=== PATIENT | female | born 1935 | race Caucasian/White ===

== ENCOUNTER → 2016-11-05 | Outpatient (REF) | payer MEDICARE ==
[~2016-11-05] MED LIST: /PANT40TA; /TIOT18INH INH; ACET65TA OR; ALBU17IN INH; ALBU83IN INH; ALTA10CA PO; ASPI1TAB PO; ASPI81TA83 PO; ASPI81TAEC PO; ATRO0.06; AVEL1TAB PO; AZIT500T2 PO; BENA10TA2 OR; BIOTLIQ9 MT; BROV15NE INH; BUDE0.5S6 INH; CARV12.5 PO; CARV3.12 PO; CEFD1CAP8 PO; CEFT250T PO; CEFT500T; CEFU125S PO; COMBIN INH; CORE3.12 PO; CRES40TA; CRES40TA PO; DOXY150C PO; IPRA2IN INH; IPRASOL4 INH; KLOR1TAB69 PO; LASI20TA PO; LEVA250T OR; LEVA250T PO; LEVO112T2 PO; LEVO250T24 PO; LISI-542 PO; MUCI600T34 PO; MULTLIQ PO; NEUR100C PO; OXYGEN; PLAV75TA PO; PLAV75TA2 PO; POLYPOW78 PO; POTA-77 PO; POTA10CA2 OR; POTA10PO PO; POTA1TAB14 PO; PRED10PA PO; PRED10TA PO; PRED10TA2; PRED1TAB32 PO; PRED1TABL PO; PRED20TAB PO; PRED5SOL2 PO; PRED5TA PO; RANI150C OR; SPIR1CAP INH; SPIR25TA2 PO; SYMB80INH INH; SYNT125T PO; TIOT18INH INH; TYLE325T5 PO; ULTR50TA PO; VALT500T PO; VIT D 2000 PO; VITA100037 PO; VITA100066 PO; WELL100T PO; XOPEAER IN; ZANTTAB PO; ZEST1TAB5 PO; ZITH500T
== END ==
LOC: M LAB REF 12:56
PROVIDERS: ATTEND Internal Medicine Nephrology
DX: N39.0 Urinary tract infection, site not specified (principal)

== ENCOUNTER 2017-01-30 00:57 | Inpatient (IN) | payer MEDICARE ==
[2017-01-30] VITALS (9 sets, daily range): BP systolic 111–137; BP diastolic 56–69; O2SAT 96
[~2017-01-30] VITALS: Ht 160 cm; Wt 68.8 kg
[~2017-01-30 00:57] MED LIST changes: -PLAV75TA PO; +PLAV75TA38 PO
[2017-01-30 01:20] LABS: ABG BASE EXCESS -6.8 (-2.0-2.0); ABG HCO3 17.4 MEQ/L (22.0-26.0); ABG PARTIAL PRESSURE CO2 31.3 mmHg (35.0-45.0); ABG PARTIAL PRESSURE O2 66.1 mmHg (75.0-100.0); ABG STANDARD HCO3 18.9 MEQ/L (22.0-26.0); ABG TOTAL CO2 18.4 MEQ/L (23.0-31.0); ABG pH (ARTERIAL) 7.364 UNITS (7.350-7.450)
[2017-01-30 01:32] LABS: BASO % 0.4 % (0.0-1.0); EOS # 0.4 K/mm3 (0.0-0.50); EOS % 2.7 % (0.0-3.0); LARGE UNSTAINED CELL # 0.1 K/mm3 (0.0-0.4); LARGE UNSTAINED CELL % 0.8 % (0.0-4.0); LYMPH # 2.3 K/mm3 (1.5-4.5); LYMPH % 16.6 % (24.0-44.0); MEAN CORPUSCULAR HEMOGLOBIN 31.9 pg (27.0-33.0); MEAN CORPUSCULAR HGB CONC 31.8 g/dl (32.0-36.5); MEAN CORPUSCULAR VOLUME 100.1 fl (80.0-96.0); MONO # 0.6 K/mm3 (0.0-0.8); MONO % 4.2 % (0.0-5.0); NEUTROPHILS % 75.4 % (36.0-66.0); PLATELET COUNT, AUTOMATED 179 k/mm3 (150-450); WHITE BLOOD COUNT 13.3 K/mm3 (4.0-10.0)
[2017-01-30 01:49] LABS: BLOOD UREA NITROGEN 37 MG/DL (7-18); CALCIUM LEVEL 8.6 MG/DL (8.8-10.2); CARBON DIOXIDE LEVEL 22 MEQ/L (21-32); CHLORIDE LEVEL 113 MEQ/L (98-107); CREATININE FOR GFR 2.44 MG/DL (0.55-1.02); GLUCOSE, FASTING 138 MG/DL (83-110)
[2017-01-30 02:53] LABS: ANION GAP 10 MEQ/L (8-16); SODIUM LEVEL 145 MEQ/L (136-145)
[2017-01-30] MEDS ORDERED: PIPERACILLIN/TAZOBACTAM SOD 3.375 GM in D5W MINI-BAG PLUS 50 ML IV ONE (03:30)
[2017-01-30] MEDS ORDERED: NS 500 ML IV ONE (03:30)
[2017-01-30] MEDS ORDERED: methylPREDNISolone INJ 125 MG/2 ML VIAL (J2930) IV ONE (03:30)
[2017-01-30] MEDS ORDERED: ACETAMINOPHEN 500 MG TAB PO PRN (04:15)
[2017-01-30] MEDS ORDERED: ONDANSETRON 4MG/2ML VIAL (J2405) IV PRN (04:15)
[2017-01-30] MEDS ORDERED: BISACODYL 10 MG SUPP PR PRN (04:15)
[2017-01-30] MEDS ORDERED: IPRA6SP (04:26)
[2017-01-30] MEDS ORDERED: PRED10TA PO (04:26)
[2017-01-30] MEDS ORDERED: POTA10CA PO (04:26)
[2017-01-30 06:14] LABS: ABG BASE EXCESS -6.6 (-2.0-2.0); ABG HCO3 18.1 MEQ/L (22.0-26.0); ABG PARTIAL PRESSURE CO2 33.7 mmHg (35.0-45.0); ABG STANDARD HCO3 18.8 MEQ/L (22.0-26.0); ABG TOTAL CO2 19.1 MEQ/L (23.0-31.0); ABG pH (ARTERIAL) 7.348 UNITS (7.350-7.450)
[2017-01-30 06:17] LABS: ABG PARTIAL PRESSURE O2 45.6 mmHg (75.0-100.0)
[2017-01-30] MEDS: BUDESONIDE 0.5 MG/2 ML INHALATION SUSPENSION INH SCH ×2 (06:27→20:01)
[2017-01-30] MEDS: IPRATROPIUM 0.5MG/ALBUTEROL 2.5MG INH SOL UD 3ML (DUONEB)(J7620) NEB SCH ×4 (06:27→20:00)
[2017-01-30] MEDS ORDERED: ALBUTEROL SULFATE 2.5 MG/0.5 ML INH NEB SOLN NEB PRN (06:30)
[2017-01-30 06:37] LABS: BASO % 0.3 % (0.0-1.0); EOS # 0.2 K/mm3 (0.0-0.50); LARGE UNSTAINED CELL # 0.1 K/mm3 (0.0-0.4); LARGE UNSTAINED CELL % 0.4 % (0.0-4.0); LYMPH # 1.2 K/mm3 (1.5-4.5); LYMPH % 10.2 % (24.0-44.0); MEAN CORPUSCULAR HEMOGLOBIN 32.4 pg (27.0-33.0); MEAN CORPUSCULAR HGB CONC 32.3 g/dl (32.0-36.5); MEAN CORPUSCULAR VOLUME 100.4 fl (80.0-96.0); MONO # 0.4 K/mm3 (0.0-0.8); MONO % 3.1 % (0.0-5.0); NEUTROPHILS # 9.7 K/mm3 (1.8-7.7); NEUTROPHILS % 84.1 % (36.0-66.0); PLATELET COUNT, AUTOMATED 153 k/mm3 (150-450); RED CELL DISTRIBUTION WIDTH 15.1 % (11.5-14.5); WHITE BLOOD COUNT 11.5 K/mm3 (4.0-10.0)
[2017-01-30 06:43] LABS: ALBUMIN 3.2 GM/DL (3.2-5.2); ALKALINE PHOSPHATASE 47 U/L (45-117); ALT/SGPT 85 U/L (12-78); AST/SGOT 175 U/L (15-37); BILIRUBIN,TOTAL 0.5 MG/DL (0.2-1.0); BLOOD UREA NITROGEN 34 MG/DL (7-18); CALCIUM LEVEL 7.9 MG/DL (8.8-10.2); CARBON DIOXIDE LEVEL 21 MEQ/L (21-32); CHLORIDE LEVEL 116 MEQ/L (98-107); CREATININE FOR GFR 2.31 MG/DL (0.55-1.02); GLUCOSE, FASTING 118 MG/DL (83-110); POTASSIUM SERUM 3.8 MEQ/L (3.5-5.1); SODIUM LEVEL 144 MEQ/L (136-145); TOTAL PROTEIN 6.3 GM/DL (6.4-8.2)
[2017-01-30] MEDS: LEVOTHYROXINE 0.112 MG TAB (112 MCG) PO SCH (07:39)
[2017-01-30] MEDS: FORMOTEROL FUMARATE 20 MCG/2 ML INHALATION SOLUTION (PERFOROMIST) INH SCH ×2 (08:00→20:01)
--- NOTE | 2017-01-30 08:59 | REP ---
AP PORTABLE CHEST: 01/30/2017. Clinical history: Dyspnea, cough. Comparison: 03/12/2016, 01/23/2016 chest x-ray. Findings: Hyperinflation with changes of COPD and fibrosis. Fibrosis is heavier in the bases. There is no pleural effusion or dense consolidation. Heart size mildly prominent for this projection and degree of inflation. There is some venous hypertension without pulmonary edema. The aorta is calcified, tortuous and ectatic without aneurysm. It is unchanged in appearance. Airway intact. There is no widening of the mediastinum. No gurwinder edema. Degenerative changes are seen in the spine. The bones are demineralized. Impression: 1. COPD and fibrosis with heavier fibrotic changes in the bases. No acute infiltrate. 2. Mild prominence cardiac silhouette with venous hypertension. No gurwinder edema. No definite effusion. 3. Tortuous calcified ectatic aorta unchanged. Signed by London Figueroa MD 01/30/2017 09:11 A
[2017-01-30] MEDS: SENOKOT S TAB PO SCH ×2 (09:00→21:24)
[2017-01-30] MEDS: HEPARIN SOD (PORCINE) 5000 UNITS/ML VIAL SC SCH ×2 (09:10→21:24)
[2017-01-30] MEDS: CARVedilol 3.125 MG TAB PO SCH ×2 (09:10→21:23)
[2017-01-30] MEDS: ASPIRIN 81 MG ENTERIC TAB PO SCH (09:11)
[2017-01-30] MEDS: methylPREDNISolone INJ 40 MG/1 ML VIAL (J2920) IV SCH ×3 (09:11→21:24)
[2017-01-30] MEDS: PANTOPRAZOLE 40MG TAB (PROTONIX) PO SCH (09:11)
[2017-01-30] MEDS: PIPERACILLIN/TAZOBACTAM SOD 2.25 GM in D5W MINI-BAG PLUS 50 ML IV SCH ×3 (09:11→21:25)
--- NOTE | 2017-01-30 09:14 | IPNPDOC ---
Subjective Date Seen The patient was seen on 01/30/17. Subjective Chief Complaint/HPI The patient is a 82-year-old female admitted with a reason for visit of Acute On Chronic Resp Failure. General: Denies: Chills, Fatigue, Malaise, Night Sweats, Normal Appetite, Other Symptoms, ROS Unobtainable Constitutional: Denies: Chills, Fatigue, Fever, Lethargy, Malaise, Night Sweats , Other, Weakness, Weight Loss Eyes: Denies: Conjunctivae inflammation, Eyelid inflammation, Other, Pain, Redness, Vision change ENT: Denies: Dysphagia, Ear Pain, Epistaxis, Head Aches, Other Symptoms, Post Nasal Drip, Sinus Congestion, Sore Throat Skin: Denies: Breakdown, Bruising, Dry, Itching, Jaundice, Lesions, Nail Changes, Other, Rash Pulmonary: Denies: Cough, Dyspnea, Other Symptoms, Pleuritic Chest Pain Cardiovascular: Denies: Chest Pain, Edema, Lt Headedness, Orthopnea, Other Symptoms, Palpitations, Paroxysmal Noc. Dyspnea Gastrointestinal: Denies: Abdominal Pain, Constipation, Diarrhea, Hematochezia , Melena, Nausea, Other Symptoms, Vomiting Objective Physical Examination General Exam: Positive: Alert, Cooperative, No Acute Distress, Other (elderly, frail) Eye Exam: Positive: Conjunctiva & lids normal, EOMI, PERRLA, Negative: Sclera icteric ENT Exam: Positive: Atraumatic, Mucous membr. moist/pink Neck Exam: Positive: JVD, Supple Chest Exam: Positive: Other (diminished breath sounds R>L), Wheezing Heart Exam: Positive: Rate Normal, Regular Rhythm Telemetry: Positive: No significant arrhythmia, Sinus Extremity Exam: Negative: Edema Psych Exam: Positive: Mental status NL, Oriented x 3 Assessment /Plan Problems (1) Acute on chronic respiratory failure with hypoxia Status: Acute Response to Treatment: Progressing Discussed With: Patient, Health Care Proxy Problem Specific Plan: Monitor Clinically Problem Text: Supplemental oxygen to maintain O2 sats 88-92%. ABG noted, question if possible mixed arterial/venous as patient is extremely comfortable. Treat as per COPD. IV antibiotics - Zosyn - for possible underlying respiratory infection. Will check respiratory panel. History of recent pneumonia (December 2016), as well as distant history of bilateral pleural effusion / right chest tube in 2006. CT chest when respiratory status improves. MRSA screen. (2) COPD exacerbation Onset Date: 10/28/2014 Status: Acute Discussed With: Patient Problem Specific Plan: Monitor Clinically Problem Text: Acute on chronic. Antibiotics, steroids. (3) CAD (coronary artery disease) Status: Chronic Discussed With: Patient, Health Care Proxy Problem Specific Plan: Monitor Clinically, Repeat Labs Problem Text: S/P [place]/stents 2005 continue plavix, crestor, aspirin, coreg (4) CKD (chronic kidney disease) Status: Acute Discussed With: Patient Problem Specific Plan: Monitor Clinically, Repeat Labs, Repeat Tests Problem Text: acute on chronic check ua, ucs gentle hydration (5) Hypothyroidism Status: Chronic Problem Text: synthroid check thyroid profile (6) Hypercholesterolemia Status: Chronic Problem Text: Crestor (7) CVA (cerebral vascular accident) Status: Chronic Discussed With: Patient, Health Care Proxy Problem Specific Plan: Monitor Clinically Problem Text: 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 Plan/VTE VTE Prophylaxis Ordered?: Yes Plan IVF: Initiate Diet: Continue Current Activity: Bedrest Medications: Start Antibiotics Diagnostics: Repeat Labs in AM, Obtain Cultures Advance Directives: DNR No H&P available yet. A/C hypoxic respiratory failure. Treating as COPD exacerbation +/- PNA. Respiratory regimen, IV steroid, IV antibiotics. VS, I&O, 24H, [facility] Vital Signs/I&O Vital Signs Date Time Temp Pulse Resp B/P Pulse Ox O2 Delivery O2 Flow Rate FiO2 01/30/17 06:48 88 Venturi Mask 15.0 50 01/30/17 06:00 97.5 62 20 133/61 Laboratory Data 24H LABS Laboratory Tests 2 01/30/17 01:08: Arterial Blood pH 7.364, Arterial Blood Partial Pressure CO2 31.3L, Arterial Blood Partial Pressure O2 66.1L, Arterial Blood Total CO2 18.4L, Arterial Blood HCO3 17.4L, Arterial Blood Base Excess -6.8L, Arterial Blood Oxygen Saturation 93.2L, Blood Gas Bicarbonate Standard 18.9L 01/30/17 01:10: Anion Gap 10, White Blood Count 13.3H, Red Blood Count 3.76L, Hemoglobin 12.0, Hematocrit 37.6, Mean Corpuscular Volume 100.1H, Mean Corpuscular Hemoglobin 31.9, Mean Corpuscular Hemoglobin Concent 31.8L, Red Cell Distribution Width 15.0H, Platelet Count 179, Neutrophils (%) (Auto) 75.4H, Lymphocytes (%) (Auto) 16.6L, Monocytes (%) (Auto) 4.2, Eosinophils (%) (Auto) 2.7, Basophils (%) (Auto ) 0.4, Neutrophils # (Auto) 10.0H, Lymphocytes # (Auto) 2.3, Monocytes # (Auto) 0.6, Eosinophils # (Auto) 0.4, Basophils # (Auto) 0.0, Blood Urea Nitrogen 37H, Creatinine 2.44H, Sodium Level 145, Potassium Level 4.0, Chloride Level 113H, Carbon Dioxide Level 22, Calcium Level 8.6L, Total Creatine Kinase 4721H, Creatine Kinase MB 17.1H, Creatine Kinase MB Relative Index 0.36, Lactic Acid Level 1.7, Large Unclassified Cells # 0.1, Large Unclassified Cells % 0.8, Troponin I 0.02 01/30/17 06:01: White Blood Count 11.5H, Red Blood Count 3.57L, Hemoglobin 11.6L, Hematocrit 35.9L, Mean Corpuscular Volume 100.4H, Mean Corpuscular Hemoglobin 32.4, Mean Corpuscular Hemoglobin Concent 32.3, Red Cell Distribution Width 15.1H, Platelet Count 153, Neutrophils (%) (Auto) 84.1H, Lymphocytes (%) (Auto) 10.2L, Monocytes (%) (Auto) 3.1, Eosinophils (%) (Auto) 2.0, Basophils (%) (Auto) 0.3, Neutrophils # (Auto) 9.7H, Lymphocytes # (Auto) 1.2L, Monocytes # (Auto) 0.4, Eosinophils # (Auto) 0.2, Basophils # (Auto) 0.0, Blood Urea Nitrogen 34H, Creatinine 2.31H, Sodium Level 144, Potassium Level 3.8, Chloride Level 116H, Carbon Dioxide Level 21, Calcium Level 7.9L, Total Creatine Kinase 5110H, Creatine Kinase MB 22.5H, Creatine Kinase MB Relative Index 0.44, Large Unclassified Cells # 0.1, Large Unclassified Cells % 0.4, Troponin I 0.02, Aspartate Amino Transf (AST/SGOT) 175H, Alanine Aminotransferase (ALT/SGPT) 85H , Alkaline Phosphatase 47, Total Bilirubin 0.5, Total Protein 6.3L, Albumin 3.2 01/30/17 06:08: Arterial Blood pH 7.348L, Arterial Blood Partial Pressure CO2 33.7L, Arterial Blood Partial Pressure O2 45.6*L, Arterial Blood Total CO2 19.1L, Arterial Blood HCO3 18.1L, Arterial Blood Base Excess -6.6L, Arterial Blood Oxygen Saturation 82.4L, Blood Gas Bicarbonate Standard 18.8L CBC/BMP Laboratory Tests 01/30/17 01:10 Calcium Level 8.6 L, Total Creatine Kinase 4721 H, Red Blood Count 3.76 L, Mean Corpuscular Volume 100.1 H, Mean Corpuscular Hemoglobin 31.9, Mean Corpuscular Hemoglobin Concent 31.8 L, Red Cell Distribution Width 15.0 H, Neutrophils (%) ( Auto) 75.4 H, Lymphocytes (%) (Auto) 16.6 L, Monocytes (%) (Auto) 4.2, Eosinophils (%) (Auto) 2.7, Basophils (%) (Auto) 0.4, Neutrophils # (Auto) 10.0 H, Lymphocytes # (Auto) 2.3, Monocytes # (Auto) 0.6, Eosinophils # (Auto) 0.4, Basophils # (Auto) 0.0 01/30/17 06:01 Calcium Level 7.9 L, Total Creatine Kinase 5110 H, Red Blood Count 3.57 L, Mean Corpuscular Volume 100.4 H, Mean Corpuscular Hemoglobin 32.4, Mean Corpuscular Hemoglobin Concent 32.3, Red Cell Distribution Width 15.1 H, Neutrophils (%) ( Auto) 84.1 H, Lymphocytes (%) (Auto) 10.2 L, Monocytes (%) (Auto) 3.1, Eosinophils (%) (Auto) 2.0, Basophils (%) (Auto) 0.3, Neutrophils # (Auto) 9.7 H , Lymphocytes # (Auto) 1.2 L, Monocytes # (Auto) 0.4, Eosinophils # (Auto) 0.2, Basophils # (Auto) 0.0, Aspartate Amino Transf (AST/SGOT) 175 H, Alanine Aminotransferase (ALT/SGPT) 85 H, Alkaline Phosphatase 47, Total Bilirubin 0.5, Total Protein 6.3 L, Albumin 3.2 Microbiology Microbiology 01/30/17 Blood Culture, Received Pending 01/30/17 Blood Culture, Received Pending 01/30/17 Influenza Virus Type A Antigen - Final, Complete 01/30/17 Influenza Virus Type B Antigen - Final, Complete DEREK PEREZ MD Jan 30, 2017 09:14
--- NOTE | 2017-01-30 09:57 | HPE ---
DATE OF ADMISSION: 01/30/2017 PRIMARY CARE PROVIDER: Dr. Medina TECHNICAL SPEC: Dr. Webb LICENSING COORDINATOR: Dr. Mcwilliams CHIEF COMPLAINT: Increasing shortness of breath for the past 3 days, some nasal congestion and nasal drippings 3 days ago. PAST MEDICAL HISTORY: 1. Chronic obstructive pulmonary disease (COPD). 2. Chronic hypoxic respiratory failure on 2 liters home oxygen. 3. Hypothyroidism. 4. Coronary artery disease status post myocardial infarction and stenting in the past. 5. Peripheral vascular disease status post bilateral femorofemoral bypasses times two. 6. History of right-sided pleural effusion with pneumonia and chest tube placement in 2008. 7. Chronic kidney disease (CKD) stage IV. 8. Gastroesophageal reflux disease (GERD). 9. Depression. 10. Hyperlipidemia. 11. Chronic smoker. 12. Hypertension. 13. Peptic ulcer disease. 14. Diastolic congestive heart failure. 15. Primary hypertension. HISTORY OF PRESENT ILLNESS: This is an 82-year-old female with long history of COPD on home oxygen 2 liters 16/05 was recently hospitalized in December and treated for pneumonia comes back brought in by daughter with 3 day history of progressively increasing shortness of breath and some nasal congestion and nasal discharge. Daughter wanted to bring the patient to the hospital 2 days ago, however, the patient refused to come. However, today her symptoms also worsened. She could hardly talk in sentences. So an ambulance was called and brought to the hospital. When she was initially brought in, her oxygen saturation was 72% with a baseline 2 liters of home oxygen. She was placed on a nonrebreather mask 100% with improvement in her oxygen saturation. Subsequent to that, she was treated with several nebulizers and steroids in the emergency department (ED) with subsequent improvement in her oxygenation so that she could be weaned down to 50% Venturi mask with which she was maintaining her saturation in low 90s. The patient denied any fever or chills. Denies any chest pain. Denies abdominal pain, nausea, vomiting or diarrhea. The patient has been diligently using her nebulizers. In the ED, she was also noted to have elevated white count of 13.3, so patient was started on Zosyn. She was also noted to have mild rhabdomyolysis with a creatinine phosphokinase (CPK) of 4721, though there is no history of any fall or muscular injury. It could be a part of viral infection. Patient was admitted to the hospitalist service for COPD exacerbation and upper respiratory tract infection. PAST SURGICAL HISTORY: 1. Bilateral femorofemoral bypasses times two cardiac stents. 2. Cataract surgery. 3. Right-sided chest tube placement in 2008. 4. Hysterectomy. 5. Elbow surgery. Chest x-ray did not show any acute infiltrates or pneumothorax. ALLERGIES: NO KNOWN DRUG ALLERGIES. HOME MEDICATIONS: - albuterol/ipratropium inhalation four times a day - eformoterol 50 mcg inhalation every 12 hours - aspirin 81 mg daily - Plavix 75 mg daily - budesonide 0.5 mg twice a day - Coreg 3.215 mg by mouth twice a day - cholecalciferol 1000 units daily - Synthroid 112 mcg in the morning - potassium chloride 10 mEq by mouth twice a day - prednisone 10 mg daily - ranitidine 150 mg by mouth twice a day - Crestor 40 mg by mouth at bedtime - Spiriva one inhalation daily SOCIAL HISTORY: Patient is a current smoker, has been smoking for more than 60 years. Does not abuse alcohol or recreational drugs. REVIEW OF SYSTEMS: All 10-point review of systems are negative except as mentioned in HPI. PHYSICAL EXAMINATION: VITAL SIGNS: Blood pressure 134/59, pulse oximetry 95% with 50% Venturi mask, pulse 60, respiratory rate 18. GENERAL: Patient awake, alert, oriented times three, lying down in bed, in no acute distress. HEENT: Normocephalic, atraumatic. Moist mucous membranes. Anicteric eyes. CHEST: Anteriorly clear to auscultation. Posteriorly there is decreased breath sounds on the right below the scapula. There is no wheezing or crackles heard. However, overall air entry is poor. ABDOMEN: Soft, nontender. Bowel sounds present. EXTREMITIES: No edema. LABORATORY DATA: WBC 13.3, hemoglobin 12, platelets 179. Sodium 145, potassium 4, chloride 113, bicarbonate 22, BUN 33, creatinine is 2.44, glucose 138, lactic acid 1.7, calcium 8.6. CPK is 4721. Troponin is normal. Blood gas shows pH of 7.36, pCO2 31, pO2 66. ASSESSMENT AND PLAN: This is an 82-year-old female admitted for chronic obstructive pulmonary disease exacerbation , acute on chronic respiratory failure with hypoxia and rhabdomyolysis. 1. Plan for COPD exacerbation, we will continue with IV steroids, nebulizers. 2. Upper respiratory tract infection, possible acute bronchitis. We will continue with Zosyn in view of recent hospitalization. 3. Chronic kidney disease stage IV. We will continue to monitor. Creatinine seems to be close to baseline. 4. Rhabdomyolysis. It could be related to some viral upper respiratory tract infection. Patient has received some IV fluids in the ED. We will continue to monitor. 5. Diastolic congestive heart failure. Patient seems to be euvolemic at this point. 6. Hypothyroidism. We will continue with Synthroid. 7. Coronary artery disease status post stents. We will continue with statins, aspirin, Plavix and beta-yuki. 8. Hypertension. We will continue with Coreg. 9. Deep venous thrombosis (DVT) prophylaxis has been ordered. 10. Gastrointestinal (GI) prophylaxis has been ordered. 11. Acute on chronic respiratory failure with hypoxia, ABG shows normal ph no co2 retention will continue oxygen supplementation with venturi mask , continue treatment for COPD exacerbation and acute bronchitis. MTDD
[2017-01-30 10:02] LABS: ANION GAP 7 MEQ/L (8-16)
[2017-01-30 10:03] LABS: ALBUMIN/GLOBULIN RATIO 1.03 (1.00-1.93)
--- NOTE | 2017-01-30 21:08 | ECGEPIP ---
Stationary ECG Study [facility] - ED Test Date: 2017-01-30 Pat Name: BASSAM ROSALES Department: Room: [place] [address] Gender: F Central Office Inspector: : 1935 Requested By: MARIANA Smith Order Number: [id number] Reading MD: Kimberly Keita Measurements Intervals Magna Rate: 70 P: 77 MN: 170 QRS: 38 QRSD: 92 T: 95 QT: 403 QTc: 437 Interpretive Statements SINUS RHYTHM NONSPECIFIC T-WAVE ABNORMALITY LOW VOLTAGE LIMB Electronically Signed On 01-30-2017 21:07:47 EDT by Kimberly Keita
[2017-01-30] MEDS: CLOPIDOGREL 75 MG TAB PO SCH (21:23)
[2017-01-30] MEDS: ROSUVASTATIN 10 MG TAB (CRESTOR) PO SCH (21:24)
[2017-01-31] VITALS (8 sets, daily range): BP systolic 99–131; BP diastolic 50–60
[2017-01-31] MEDS: IPRATROPIUM 0.5MG/ALBUTEROL 2.5MG INH SOL UD 3ML (DUONEB)(J7620) NEB SCH ×6 (03:04→20:00)
[2017-01-31] MEDS: PIPERACILLIN/TAZOBACTAM SOD 2.25 GM in D5W MINI-BAG PLUS 50 ML IV SCH ×4 (03:30→21:22)
[2017-01-31] MEDS: methylPREDNISolone INJ 40 MG/1 ML VIAL (J2920) IV SCH ×4 (03:30→21:21)
[2017-01-31 05:27] LABS: BASO # 0.1 K/mm3 (0.0-0.2); BASO % 0.4 % (0.0-1.0); EOS % 0.1 % (0.0-3.0); LARGE UNSTAINED CELL # 0.1 K/mm3 (0.0-0.4); LARGE UNSTAINED CELL % 0.3 % (0.0-4.0); LYMPH # 1.3 K/mm3 (1.5-4.5); LYMPH % 7.1 % (24.0-44.0); MEAN CORPUSCULAR HEMOGLOBIN 32.1 pg (27.0-33.0); MEAN CORPUSCULAR HGB CONC 31.9 g/dl (32.0-36.5); MEAN CORPUSCULAR VOLUME 100.9 fl (80.0-96.0); MONO % 5.6 % (0.0-5.0); NEUTROPHILS # 15.5 K/mm3 (1.8-7.7); NEUTROPHILS % 86.6 % (36.0-66.0); PLATELET COUNT, AUTOMATED 162 k/mm3 (150-450); RED CELL DISTRIBUTION WIDTH 15.2 % (11.5-14.5); WHITE BLOOD COUNT 17.9 K/mm3 (4.0-10.0)
[2017-01-31 05:33] LABS: CALCIUM LEVEL 7.7 MG/DL (8.8-10.2); CREATININE FOR GFR 2.78 MG/DL (0.55-1.02); GLOMERULAR FILTRATION RATE 17.4 (>32); POTASSIUM SERUM 4.1 MEQ/L (3.5-5.1)
[2017-01-31] MEDS: LEVOTHYROXINE 0.112 MG TAB (112 MCG) PO SCH (05:45)
[2017-01-31] MEDS: BUDESONIDE 0.5 MG/2 ML INHALATION SUSPENSION INH SCH ×2 (07:24→20:18)
[2017-01-31] MEDS: FORMOTEROL FUMARATE 20 MCG/2 ML INHALATION SOLUTION (PERFOROMIST) INH SCH ×2 (07:24→20:18)
[2017-01-31] MEDS: HEPARIN SOD (PORCINE) 5000 UNITS/ML VIAL SC SCH ×2 (08:43→21:21)
[2017-01-31] MEDS: PANTOPRAZOLE 40MG TAB (PROTONIX) PO SCH (08:43)
[2017-01-31] MEDS: ASPIRIN 81 MG ENTERIC TAB PO SCH (08:43)
[2017-01-31] MEDS: SENOKOT S TAB PO SCH ×2 (08:43→21:20)
[2017-01-31] MEDS: CARVedilol 3.125 MG TAB PO SCH ×2 (08:44→21:21)
[2017-01-31] MEDS ORDERED: SLF 3 ML SYR IV PRN (12:00)
[2017-01-31] MEDS: SLF 3 ML SYR IV SCH ×2 (16:00→21:22)
[2017-01-31] MEDS: ROSUVASTATIN 10 MG TAB (CRESTOR) PO SCH (21:20)
[2017-01-31] MEDS: CLOPIDOGREL 75 MG TAB PO SCH (21:20)
--- NOTE | 2017-01-31 23:10 | IPNPDOC ---
Subjective Date Seen The patient was seen on 01/31/17. Subjective Chief Complaint/HPI The patient is a 82-year-old female admitted with a reason for visit of Acute On Chronic Resp Failure. Events since last encounter pt seen and examined doing well, using less oxygen continues to have good oxygen saturation Constitutional: Denies: Chills, Fever, Night Sweats Pulmonary: Denies: Cough, Dyspnea Objective Physical Examination General Exam: Positive: Alert, Cooperative, No Acute Distress, Other (elderly, frail) Eye Exam: Positive: Conjunctiva & lids normal, EOMI, PERRLA, Negative: Sclera icteric ENT Exam: Positive: Atraumatic, Mucous membr. moist/pink Neck Exam: Positive: JVD, Supple Chest Exam: Positive: Other (diminished breath sounds R>L), Wheezing Heart Exam: Positive: Rate Normal, Regular Rhythm Telemetry: Positive: No significant arrhythmia, Sinus Extremity Exam: Negative: Edema Psych Exam: Positive: Mental status NL, Oriented x 3 Assessment /Plan Problems (1) Acute on chronic respiratory failure with hypoxia Status: Resolved Problem Specific Plan: Monitor Clinically Problem Text: Supplemental oxygen to maintain O2 sats 88-92%. Treat as per COPD. IV antibiotics - Zosyn - for possible underlying respiratory infection. respiratory panel negative (2) COPD exacerbation Onset Date: 10/28/2014 Status: Acute Response to Treatment: Improving Discussed With: Patient Problem Specific Plan: Monitor Clinically Problem Text: Acute on chronic. Antibiotics, steroids. (3) CAD (coronary artery disease) Status: Chronic Discussed With: Patient, Health Care Proxy Problem Specific Plan: Monitor Clinically, Repeat Labs Problem Text: S/P [place]/stents 2004 continue plavix, crestor, aspirin, coreg (4) CKD (chronic kidney disease) Status: Acute Discussed With: Patient Problem Specific Plan: Monitor Clinically, Repeat Labs, Repeat Tests Problem Text: acute on chronic check ua, ucs gentle hydration (5) Hypothyroidism Status: Chronic Problem Text: synthroid check thyroid profile (6) Hypercholesterolemia Status: Chronic Problem Text: Crestor (7) CVA (cerebral vascular accident) Status: Chronic Discussed With: Patient, Health Care Proxy Problem Specific Plan: Monitor Clinically Problem Text: 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 Plan/VTE VTE Prophylaxis Ordered?: Yes Plan IVF: Initiate Diet: Continue Current Activity: Bedrest Medications: Start Antibiotics Diagnostics: Repeat Labs in AM, Obtain Cultures Advance Directives: DNR VS, I&O, 24H, [facility] Vital Signs/I&O Vital Signs Date Time Temp Pulse Resp B/P Pulse Ox O2 Delivery O2 Flow Rate FiO2 01/31/17 21:21 63 121/60 01/31/17 16:00 98.4 18 97 Nasal Cannula 3.0 01/30/17 14:01 50 I&O- Last 24 Hours up to 6 AM 01/31/17 06:00 Intake Total 1170 ml Output Total 875 ml Balance 295 ml Laboratory Data 24H LABS Laboratory Tests 2 01/31/17 04:41: Anion Gap 11, White Blood Count 17.9H, Red Blood Count 3.36L, Hemoglobin 10.8L, Hematocrit 33.9L, Mean Corpuscular Volume 100.9H, Mean Corpuscular Hemoglobin 32.1, Mean Corpuscular Hemoglobin Concent 31.9L, Red Cell Distribution Width 15.2H, Platelet Count 162, Neutrophils (%) (Auto) 86.6H, Lymphocytes (%) (Auto) 7.1L, Monocytes (%) (Auto) 5.6H, Eosinophils (%) (Auto) 0.1, Basophils (%) (Auto ) 0.4, Neutrophils # (Auto) 15.5H, Lymphocytes # (Auto) 1.3L, Monocytes # (Auto ) 1.0H, Eosinophils # (Auto) 0.0, Basophils # (Auto) 0.1, Blood Urea Nitrogen 36H, Creatinine 2.78H, Sodium Level 142, Potassium Level 4.1, Chloride Level 110H, Carbon Dioxide Level 21, Calcium Level 7.7L, Glomerular Filtration Rate 17.4L, Large Unclassified Cells # 0.1, Large Unclassified Cells % 0.3, Total Creatine Kinase 4480H CBC/BMP Laboratory Tests 01/31/17 04:41 Calcium Level 7.7 L, Red Blood Count 3.36 L, Mean Corpuscular Volume 100.9 H, Mean Corpuscular Hemoglobin 32.1, Mean Corpuscular Hemoglobin Concent 31.9 L, Red Cell Distribution Width 15.2 H, Neutrophils (%) (Auto) 86.6 H, Lymphocytes ( %) (Auto) 7.1 L, Monocytes (%) (Auto) 5.6 H, Eosinophils (%) (Auto) 0.1, Basophils (%) (Auto) 0.4, Neutrophils # (Auto) 15.5 H, Lymphocytes # (Auto) 1.3 L, Monocytes # (Auto) 1.0 H, Eosinophils # (Auto) 0.0, Basophils # (Auto) 0.1 Microbiology Microbiology 01/30/17 Blood Culture - Preliminary, Resulted No growth after 24 hours . All specim... 01/30/17 Blood Culture - Preliminary, Resulted No growth after 24 hours . All specim... 01/30/17 Respiratory Virus Panel (PCR) ([facility]) - Final, Complete 01/30/17 Influenza Virus Type A Antigen - Final, Complete 01/30/17 Influenza Virus Type B Antigen - Final, Complete 01/30/17 Urine Culture, Received Pending MELLY OLIVERA DO Jan 31, 2017 23:10
[2017-02-01] MEDS: IPRATROPIUM 0.5MG/ALBUTEROL 2.5MG INH SOL UD 3ML (DUONEB)(J7620) NEB SCH ×6 (00:30→21:34)
[2017-02-01 01:25] VITALS: BP 110/63
[2017-02-01] MEDS: PIPERACILLIN/TAZOBACTAM SOD 2.25 GM in D5W MINI-BAG PLUS 50 ML IV SCH ×4 (03:59→22:55)
[2017-02-01 06:00] VITALS: BP 111/58
[2017-02-01] MEDS: LEVOTHYROXINE 0.112 MG TAB (112 MCG) PO SCH (06:10)
[2017-02-01] MEDS: SLF 3 ML SYR IV SCH ×3 (06:11→22:55)
[2017-02-01 06:55] LABS: EOS % 0.1 % (0.0-3.0); LARGE UNSTAINED CELL # 0.1 K/mm3 (0.0-0.4); LARGE UNSTAINED CELL % 0.4 % (0.0-4.0); LYMPH # 1.1 K/mm3 (1.5-4.5); LYMPH % 5.8 % (24.0-44.0); MEAN CORPUSCULAR HEMOGLOBIN 32.2 pg (27.0-33.0); MEAN CORPUSCULAR HGB CONC 32.7 g/dl (32.0-36.5); MEAN CORPUSCULAR VOLUME 98.4 fl (80.0-96.0); MONO # 0.7 K/mm3 (0.0-0.8); NEUTROPHILS # 15.6 K/mm3 (1.8-7.7); NEUTROPHILS % 89.7 % (36.0-66.0); PLATELET COUNT, AUTOMATED 167 k/mm3 (150-450); RED CELL DISTRIBUTION WIDTH 15.3 % (11.5-14.5); WHITE BLOOD COUNT 17.4 K/mm3 (4.0-10.0)
[2017-02-01 07:24] LABS: CALCIUM LEVEL 8.1 MG/DL (8.8-10.2); CREATININE FOR GFR 2.62 MG/DL (0.55-1.02); GLOMERULAR FILTRATION RATE 18.6 (>32); POTASSIUM SERUM 4.4 MEQ/L (3.5-5.1)
[2017-02-01] MEDS: BUDESONIDE 0.5 MG/2 ML INHALATION SUSPENSION INH SCH ×2 (09:35→21:34)
[2017-02-01] MEDS: FORMOTEROL FUMARATE 20 MCG/2 ML INHALATION SOLUTION (PERFOROMIST) INH SCH ×2 (12:05→21:34)
[2017-02-01] MEDS: ASPIRIN 81 MG ENTERIC TAB PO SCH (12:27)
[2017-02-01] MEDS: SENOKOT S TAB PO SCH ×2 (12:27→22:50)
[2017-02-01] MEDS: PANTOPRAZOLE 40MG TAB (PROTONIX) PO SCH (12:27)
[2017-02-01] MEDS: CARVedilol 3.125 MG TAB PO SCH ×2 (12:28→22:49)
[2017-02-01] MEDS: predniSONE 20 MG TAB PO SCH ×2 (12:28→22:48)
[2017-02-01] MEDS: HEPARIN SOD (PORCINE) 5000 UNITS/ML VIAL SC SCH ×2 (12:29→22:48)
[2017-02-01 14:00] VITALS: BP 116/56
--- NOTE | 2017-02-01 14:15 | IPNPDOC ---
Subjective Date Seen The patient was seen on 02/01/17. Subjective Chief Complaint/HPI The patient is a 82-year-old female admitted with a reason for visit of Acute On Chronic Resp Failure. Events since last encounter Patient is feeling well, tolerates a diet, goal is to return home. No pain. Not short of breath Constitutional: Denies: Chills, Fever ENT: Denies: Head Aches Pulmonary: Denies: Cough, Dyspnea Cardiovascular: Denies: Chest Pain Gastrointestinal: Denies: Abdominal Pain, Nausea, Vomiting Objective Physical Examination General Exam: Positive: Alert, No Acute Distress Eye Exam: Positive: Conjunctiva & lids normal, PERRLA, Negative: Sclera icteric ENT Exam: Positive: Atraumatic, Mucous membr. moist/pink Neck Exam: Positive: JVD, Supple Chest Exam: Positive: Diminished, Other (diminished breath sounds R>L), Negative: Wheezing Heart Exam: Positive: Normal S1, Rate Normal, Regular Rhythm Extremity Exam: Negative: Edema Psych Exam: Positive: Mental status NL, Oriented x 3 Assessment /Plan Problems (1) Acute on chronic respiratory failure with hypoxia Status: Resolved Problem Specific Plan: Monitor Clinically Problem Text: Supplemental oxygen to maintain O2 sats 88-92%. Treat as per COPD. IV antibiotics - Zosyn - for possible underlying respiratory infection. Lost IV access- placing picc line 02/01/17 respiratory panel negative (2) COPD exacerbation Onset Date: 10/28/2014 Status: Acute Response to Treatment: Improving Discussed With: Patient Problem Specific Plan: Monitor Clinically Problem Text: Acute on chronic. Antibiotics, steroids. Improving (3) CAD (coronary artery disease) Status: Chronic Discussed With: Patient, Health Care Proxy Problem Specific Plan: Monitor Clinically, Repeat Labs Problem Text: S/P [place]/stents 2004 continue plavix, crestor, aspirin, coreg (4) CKD (chronic kidney disease) Status: Acute Discussed With: Patient Problem Specific Plan: Monitor Clinically, Repeat Labs, Repeat Tests Problem Text: acute on chronic check ua, ucs gentle hydration (5) Hypothyroidism Status: Chronic Problem Text: synthroid check thyroid profile (6) Hypercholesterolemia Status: Chronic Problem Text: Crestor (7) CVA (cerebral vascular accident) Status: Chronic Discussed With: Patient, Health Care Proxy Problem Specific Plan: Monitor Clinically Problem Text: 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 Plan/VTE VTE Prophylaxis Ordered?: Yes Plan Advance Directives: DNR VS, I&O, 24H, Fishbone Vital Signs/I&O Vital Signs Label Value Date Time Patient Temperature 96.7 degrees F 02/01/17599 Temperature Source Core 02/01/17599 Pulse 57 02/01/17599 Respiratory Rate 16 bpm 02/01/17599 Blood Pressure Assessment 111/58 (75) 02/01/17599 Bedside Pulse Oximetry 97 % 02/01/17599 Item Value Date Time Oxygen Flow Rate 3.0 L/min 02/01/17599 White Blood Count 17.4 K/mm3 H 02/01/17 0642 Hemoglobin 10.8 g/dl L 02/01/17641 Platelet Count 167 k/mm3 02/01/17641 Sodium Level 142 MEQ/L 02/01/17 06 Blood Urea Nitrogen 40 MG/DL H 02/01/17 06 Creatinine 2.62 MG/DL H 02/01/17641 Intake & Output Label Value Date Time Patient Weight 152.4 kg 02/01/17599 Patient Weight 64.8 kg 01/31/17 06 Number Bowel Movements 0 01/31/17 0000(24 hrs) Balance 710 ml 01/31/17 0000(24 hrs) RAJI RIVAS MD Feb 01, 2017 14:15
[2017-02-01 14:59] LABS: INR 1.03
--- NOTE | 2017-02-01 17:01 | REP ---
Procedure: PICC line insertion with Laci-Hiral The procedure was performed under the direct supervision of Dr. Jacobsen. The risks and benefits of the procedure were explained to the patient and informed consent was obtained. The right basilic vein was localized using ultrasound guidance. The skin was prepped and draped in a sterile fashion. 2% lidocaine was used as a local anesthetic. Using ultrasound guidance the basilic vein was cannulated and a 0.018 guidewire was inserted and advanced to the SVC using fluoroscopic guidance. The needle was removed and a 4.5 Kenyan dilator and peel-away sheath was inserted over the guide wire. A 4.5 Kenyan single lumen catheter was cut to length of 41 cm. The dilator was removed and the catheter was inserted over the guide wire with the tip ending in the SVC. The peel-away sheath was removed and the catheter was flushed with heparinized saline as per Hospital protocol. The catheter was affixed to the skin and a sterile dressing was applied. The the patient tolerated the procedure well and there were no immediate complications. 0.1 minutes of of fluoro time was utilized for this procedure. Reviewed by AGNIESZKA Aleman 02/01/2017 04:43 PSigned by Carlitos Jacobsen MD 02/01/2017 04:51 P
[2017-02-01 21:00] VITALS: BP 116/62
[2017-02-01] MEDS: CLOPIDOGREL 75 MG TAB PO SCH (22:49)
[2017-02-01] MEDS: ROSUVASTATIN 10 MG TAB (CRESTOR) PO SCH (22:51)
[2017-02-01] MEDS: SODIUM CHLORIDE 0.9% INJ 10 ML SYR IV PRN (22:55)
[2017-02-02] MEDS: IPRATROPIUM 0.5MG/ALBUTEROL 2.5MG INH SOL UD 3ML (DUONEB)(J7620) NEB SCH ×6 (03:06→20:00)
[2017-02-02] MEDS: PIPERACILLIN/TAZOBACTAM SOD 2.25 GM in D5W MINI-BAG PLUS 50 ML IV SCH ×4 (04:30→22:45)
[2017-02-02] MEDS: SODIUM CHLORIDE 0.9% INJ 10 ML SYR IV SCH ×2 (04:30→18:00)
[2017-02-02] MEDS: SLF 3 ML SYR IV SCH ×3 (04:31→22:45)
[2017-02-02 04:44] LABS: BASO % 0.1 % (0.0-1.0); EOS % 0.1 % (0.0-3.0); LARGE UNSTAINED CELL # 0.1 K/mm3 (0.0-0.4); LARGE UNSTAINED CELL % 0.5 % (0.0-4.0); LYMPH # 0.7 K/mm3 (1.5-4.5); LYMPH % 3.8 % (24.0-44.0); MEAN CORPUSCULAR HEMOGLOBIN 32.9 pg (27.0-33.0); MEAN CORPUSCULAR HGB CONC 33.5 g/dl (32.0-36.5); MEAN CORPUSCULAR VOLUME 98.2 fl (80.0-96.0); MONO # 0.8 K/mm3 (0.0-0.8); MONO % 4.9 % (0.0-5.0); NEUTROPHILS % 90.7 % (36.0-66.0); PLATELET COUNT, AUTOMATED 145 k/mm3 (150-450); RED CELL DISTRIBUTION WIDTH 15.5 % (11.5-14.5); WHITE BLOOD COUNT 15.5 K/mm3 (4.0-10.0)
[2017-02-02] MEDS: LEVOTHYROXINE 0.112 MG TAB (112 MCG) PO SCH (05:11)
[2017-02-02 05:28] LABS: CALCIUM LEVEL 7.8 MG/DL (8.8-10.2); CREATININE FOR GFR 2.22 MG/DL (0.55-1.02); GLOMERULAR FILTRATION RATE 22.5 (>32); POTASSIUM SERUM 4.2 MEQ/L (3.5-5.1)
[2017-02-02 06:00] VITALS: BP 112/48
[2017-02-02] MEDS: FORMOTEROL FUMARATE 20 MCG/2 ML INHALATION SOLUTION (PERFOROMIST) INH SCH ×2 (07:50→20:03)
[2017-02-02] MEDS: BUDESONIDE 0.5 MG/2 ML INHALATION SUSPENSION INH SCH ×2 (07:50→20:03)
[2017-02-02] MEDS: HEPARIN SOD (PORCINE) 5000 UNITS/ML VIAL SC SCH ×2 (09:49→22:44)
[2017-02-02] MEDS: PANTOPRAZOLE 40MG TAB (PROTONIX) PO SCH (09:49)
[2017-02-02] MEDS: ASPIRIN 81 MG ENTERIC TAB PO SCH (09:50)
[2017-02-02] MEDS: predniSONE 20 MG TAB PO SCH ×2 (09:50→22:45)
[2017-02-02] MEDS: CARVedilol 3.125 MG TAB PO SCH ×2 (09:50→22:45)
[2017-02-02] MEDS: SENOKOT S TAB PO SCH ×2 (09:50→22:44)
[2017-02-02 14:00] VITALS: BP 114/49
--- NOTE | 2017-02-02 17:37 | IPN ---
DATE: 02/02/2017 Miss Miller is feeling a little better today. She is not as short of breath. No chest pain. Tolerating diet. PHYSICAL EXAMINATION: Temperature 98.6, pulse 60, respiration rate 20, blood pressure 112/48, 96% on 2 liters. Intake and output (Is and Os) notable for positive fluid 880, 1 bowel movement yesterday. She is awake, appropriately interactive. Pleasantly conversant. Breathing is symmetrical I to E ration is 1:4, somewhat diminished throughout. No wheezes. Heart is distant sounding. Normal S1, S2. Abdomen, soft dough, normal active bowel sounds. No significant lower extremity edema. White count 15.5, hemoglobin 10.8, BUN 41, creatinine 2.22. My assessment is as follows: This is an 82-year-old with acute on chronic respiratory failure and hypoxia. The plan is as follows: 1. Respirator. The patient has acute on chronic respiratory failure with hypoxia. Seems to be around her baseline level of oxygen requirement. Continues on broad spectrum antibiotics. Unfortunately had to have a peripherally inserted central catheter (PICC) placed as she lost intravenous (IV) access. She is on steroids. 2. Patient has coronary artery disease. Continue Coreg, aspirin, Crestor and Plavix, status-post stents in 2004. 3. Patient has chronic kidney disease. 4. Patient has hypothyroidism. 5. Patient has hypercholesterolemia. 6. Patient has history of cerebrovascular accident (CVA). 7. Patient is generally improving. Potential discharge in 24-48 hours.
[2017-02-02 22:00] VITALS: BP 95/47
[2017-02-02] MEDS: ROSUVASTATIN 10 MG TAB (CRESTOR) PO SCH (22:44)
[2017-02-02 22:45] VITALS: BP 95/47
[2017-02-02] MEDS: CLOPIDOGREL 75 MG TAB PO SCH (22:45)
[2017-02-03] MEDS: SODIUM CHLORIDE 0.9% INJ 10 ML SYR IV PRN (00:50)
[2017-02-03] MEDS: PIPERACILLIN/TAZOBACTAM SOD 2.25 GM in D5W MINI-BAG PLUS 50 ML IV SCH ×2 (04:22→10:00)
[2017-02-03 06:00] VITALS: BP 100/53
[2017-02-03] MEDS: SLF 3 ML SYR IV SCH (06:00)
[2017-02-03] MEDS: SODIUM CHLORIDE 0.9% INJ 10 ML SYR IV SCH (06:13)
[2017-02-03] MEDS: LEVOTHYROXINE 0.112 MG TAB (112 MCG) PO SCH (06:13)
[2017-02-03 06:31] LABS: BASO % 0.1 % (0.0-1.0); EOS % 0.1 % (0.0-3.0); LARGE UNSTAINED CELL # 0.1 K/mm3 (0.0-0.4); LARGE UNSTAINED CELL % 0.5 % (0.0-4.0); LYMPH # 0.8 K/mm3 (1.5-4.5); LYMPH % 4.7 % (24.0-44.0); MEAN CORPUSCULAR HEMOGLOBIN 32.6 pg (27.0-33.0); MEAN CORPUSCULAR HGB CONC 33.5 g/dl (32.0-36.5); MEAN CORPUSCULAR VOLUME 97.2 fl (80.0-96.0); MONO # 0.6 K/mm3 (0.0-0.8); MONO % 3.8 % (0.0-5.0); NEUTROPHILS # 13.2 K/mm3 (1.8-7.7); NEUTROPHILS % 90.9 % (36.0-66.0); PLATELET COUNT, AUTOMATED 145 k/mm3 (150-450); RED CELL DISTRIBUTION WIDTH 15.5 % (11.5-14.5); WHITE BLOOD COUNT 14.5 K/mm3 (4.0-10.0)
[2017-02-03 06:54] LABS: CALCIUM LEVEL 7.9 MG/DL (8.8-10.2); CREATININE FOR GFR 2.16 MG/DL (0.55-1.02); GLOMERULAR FILTRATION RATE 23.2 (>32)
[2017-02-03] MEDS: CARVedilol 3.125 MG TAB PO SCH (07:55)
[2017-02-03] MEDS: predniSONE 20 MG TAB PO SCH (07:55)
[2017-02-03] MEDS: ASPIRIN 81 MG ENTERIC TAB PO SCH (07:56)
[2017-02-03] MEDS: PANTOPRAZOLE 40MG TAB (PROTONIX) PO SCH (07:56)
[2017-02-03] MEDS: HEPARIN SOD (PORCINE) 5000 UNITS/ML VIAL SC SCH (07:56)
[2017-02-03] MEDS: SENOKOT S TAB PO SCH (07:56)
[2017-02-03] MEDS: IPRATROPIUM 0.5MG/ALBUTEROL 2.5MG INH SOL UD 3ML (DUONEB)(J7620) NEB SCH ×2 (08:00→11:49)
[2017-02-03] MEDS ORDERED: BACITAB3 PO (08:17)
[2017-02-03] MEDS ORDERED: PRED10TA PO (08:17)
[2017-02-03] MEDS ORDERED: AMOX500T2 PO (08:17)
[2017-02-03] MEDS: BUDESONIDE 0.5 MG/2 ML INHALATION SUSPENSION INH SCH (08:37)
[2017-02-03] MEDS: FORMOTEROL FUMARATE 20 MCG/2 ML INHALATION SOLUTION (PERFOROMIST) INH SCH (08:37)
--- NOTE | 2017-02-04 06:09 | DSES ---
DATE OF ADMISSION: 01/30/2017 DATE OF DISCHARGE: 02/03/2017 SPECIALISTS: None involved in her care. COMPLICATIONS: No complication during her stay. DISCHARGE DIAGNOSES: 1. Acute on chronic respiratory failure with hypoxia. 2. Chronic obstructive pulmonary disease (COPD). 3. Coronary artery disease. 4. Chronic kidney disease. 5. Hypothyroidism. 6. Hypercholesterolemia. 7. History of cerebrovascular accident (CVA). SUMMARY OF HOSPITALIZATION: This is an 82-year-old who presented with increasing shortness of breath over three days. She was admitted to the hospitalist service for treatment for an upper respiratory infection, possible acute bronchitis or COPD exacerbation, treated with broad-spectrum antibiotics based on her recent hospitalization. She improved relatively quickly and was treated with aggressive pulmonary toilet. Respiratory panel was negative. Influenza screen was negative. On the day of discharge, she is moving around well. She feels ready to go home. There is 24-hour home care available to her. OBJECTIVE: VITAL SIGNS: Temperature 97.7, pulse 68, respiratory rate 18, blood pressure 153, 97% on two liters nasal cannula. GENERAL: Awake, alert, pleasant, easily conversant. RESPIRATORY: I to E ratio is 1:4, somewhat diminished breath sounds throughout. No wheezes. HEART: Slightly distant sounding normal S1, S2. ABDOMEN: Soft, doughy, nontender. LABORATORY DATA: White cell count is 14.5. Please not patient's white cell count seems to be chronically elevated at this range. May benefit from further outpatient workup as clinically indicated. Hemoglobin 10.2. BUN 37, creatinine 2.16 which is likely somewhat elevated from her home range, but trending downward. DISCHARGE INSTRUCTIONS: The patient is to followup with Dr. Medina as an outpatient. Continue diet, activity and oxygen at home. Continue with 24-hour home care. DISCHARGE MEDICATIONS: Not available to me at this time, given the [facility] downtime, but they are available in the computer for future review.
== END 2017-02-03 12:28 | disposition home or self-care (01) | DRG 189 ==
LOC: EDBD 00:57 → M ED 03:46 → M ED INP 04:15 → M ICU 05:49 → M MSPAV 01-31 19:45 → M MS5PR 02-01 01:25 → M MS4PR 02-01 20:35
PROVIDERS: ADMIT Internal Medicine Nephrology; ATTEND Internal Medicine
PROC: 05HB33Z Insertion of Infusion Device into Right Basilic Vein, Percutaneous Approach (ICD-10-PCS; principal; 2017-02-01)
DX: J96.21 Acute and chronic respiratory failure with hypoxia (principal); J44.1 Chronic obstructive pulmonary disease with (acute) exacerbation; N18.4 Chronic kidney disease, stage 4 (severe); I13.0 Hypertensive heart and chronic kidney disease with heart failure and stage 1 through stage 4 chronic kidney disease, or unspecified chronic kidney disease; I50.32 Chronic diastolic (congestive) heart failure; M62.82 Rhabdomyolysis; E03.9 Hypothyroidism, unspecified; Z66 Do not resuscitate; I25.10 Atherosclerotic heart disease of native coronary artery without angina pectoris; I25.2 Old myocardial infarction; I73.9 Peripheral vascular disease, unspecified; K21.9 Gastro-esophageal reflux disease without esophagitis; F32.9 Major depressive disorder, single episode, unspecified; E78.00 Pure hypercholesterolemia, unspecified; E78.5 Hyperlipidemia, unspecified; F17.210 Nicotine dependence, cigarettes, uncomplicated; Z99.81 Dependence on supplemental oxygen; Z95.5 Presence of coronary angioplasty implant and graft; Z98.62 Peripheral vascular angioplasty status; Z79.02 Long term (current) use of antithrombotics/antiplatelets; Z79.82 Long term (current) use of aspirin; Z79.52 Long term (current) use of systemic steroids; Z79.899 Other long term (current) drug therapy; Z86.73 Personal history of transient ischemic attack (TIA), and cerebral infarction without residual deficits

== ENCOUNTER 2017-10-26 17:30 | Inpatient (IN) | payer MEDICARE ==
[2017-10-26] MEDS: methylPREDNISolone INJ 125 MG/2 ML VIAL (J2930) IV (18:15)
[2017-10-26] MEDS: IPRATROPIUM 0.5MG/ALBUTEROL 2.5MG INH SOL UD 3ML (DUONEB)(J7620) NEB ×4 (18:25→23:47)
[2017-10-26 18:33] LABS: BASO % 0.6 % (0.0-1.0); EOS % 0.1 % (0.0-3.0); HEMATOCRIT 36.8 % (36.0-47.0); HEMOGLOBIN 11.9 g/dl (12.0-16.0); IMMATURE GRANULOCYTE # 0.1 10^3/uL (0-0); LYMPH # 1.5 10^3/uL (1.5-4.5); LYMPH % 21.5 % (24.0-44.0); MEAN CORPUSCULAR HEMOGLOBIN 33.1 pg (27.0-33.0); MEAN CORPUSCULAR HGB CONC 32.3 g/dl (32.0-36.5); MEAN CORPUSCULAR VOLUME 102.2 fl (80.0-96.0); MONO # 0.7 10^3/uL (0.0-0.8); MONO % 9.9 % (0.0-5.0); NEUTROPHILS # 4.7 10^3/uL (1.8-7.7); NEUTROPHILS % 66.9 % (36.0-66.0); PLATELET COUNT, AUTOMATED 124 10^3/uL (150-450); RED CELL DISTRIBUTION WIDTH 13.3 % (11.5-14.5); WHITE BLOOD COUNT 7.1 10^3/uL (4.0-10.0)
[2017-10-26 18:39] LABS: ABG BASE EXCESS -1.9 (-2.0-2.0); ABG HCO3 23.5 MEQ/L (22.0-26.0); ABG O2 SATURATION 98.9 % (95.0-99.0); ABG PARTIAL PRESSURE CO2 42.1 mmHg (35.0-45.0); ABG PARTIAL PRESSURE O2 163.9 mmHg (75.0-100.0); ABG TOTAL CO2 24.8 MEQ/L (23.0-31.0); ABG pH (ARTERIAL) 7.364 UNITS (7.350-7.450)
[2017-10-26 18:59] LABS: ANION GAP 7 MEQ/L (8-16); BLOOD UREA NITROGEN 22 MG/DL (7-18); CARBON DIOXIDE LEVEL 28 MEQ/L (21-32); CHLORIDE LEVEL 104 MEQ/L (98-107); CREATININE FOR GFR 2.42 MG/DL (0.55-1.02); GLOMERULAR FILTRATION RATE 20.4 (>32); GLUCOSE, FASTING 122 MG/DL (83-110); SODIUM LEVEL 139 MEQ/L (136-145)
[2017-10-26 19:02] LABS: NT-PRO BNP 775 PG/ML (<450)
[2017-10-26 19:13] LABS: LACTIC ACID SEPSIS PROTOCOL 2.6 MMOL/L (0.4-2.0)
[2017-10-26] MEDS ORDERED: ONDANSETRON 4MG/2ML VIAL (J2405) IV (21:15)
[2017-10-26] MEDS: LevoFLOXacin IV 500 MG in APPROPRIATE DILUENT 1 EA IV (22:34)
[2017-10-26] MEDS: ACETAMINOPHEN TAB 650MG DOSE (2X325MG) PO (22:36)
[2017-10-27] MEDS ORDERED: POLYVINYL ALCOHOL OPHTH SOLN 15 ML(LIQUITEARS) OU (01:30)
[2017-10-27] MEDS: CARVedilol 3.125 MG TAB PO ×3 (01:58→21:00)
[2017-10-27] MEDS: BUDESONIDE 0.5 MG/2 ML INHALATION SUSPENSION INH ×3 (02:06→19:48)
[2017-10-27] MEDS: POTASSIUM CHLORIDE 10 MEQ SR TABLET PO ×3 (02:20→22:00)
[2017-10-27] MEDS: FAMOTIDINE 20 MG TAB PO ×3 (02:20→22:00)
[2017-10-27] MEDS: CLOPIDOGREL 75 MG TAB PO ×2 (02:20→22:00)
[2017-10-27] MEDS: ROSUVASTATIN 10 MG TAB (CRESTOR) PO ×2 (02:20→22:01)
[2017-10-27] MEDS: IPRATROPIUM 0.5MG/ALBUTEROL 2.5MG INH SOL UD 3ML (DUONEB)(J7620) NEB ×6 (04:00→23:55)
[2017-10-27] MEDS: LEVOTHYROXINE 112MCG TABLET (0.112MG) PO (06:26)
[2017-10-27 06:43] LABS: BASO % 0.4 % (0.0-1.0); HEMATOCRIT 36.4 % (36.0-47.0); HEMOGLOBIN 11.9 g/dl (12.0-16.0); IMMATURE GRANULOCYTE # 0.1 10^3/uL (0-0); IMMATURE GRANULOCYTE % 1.7 % (0-0); LYMPH % 13.4 % (24.0-44.0); MEAN CORPUSCULAR HEMOGLOBIN 33.1 pg (27.0-33.0); MEAN CORPUSCULAR HGB CONC 32.7 g/dl (32.0-36.5); MEAN CORPUSCULAR VOLUME 101.4 fl (80.0-96.0); MONO # 0.2 10^3/uL (0.0-0.8); MONO % 3.2 % (0.0-5.0); NEUTROPHILS # 6.1 10^3/uL (1.8-7.7); NEUTROPHILS % 81.3 % (36.0-66.0); PLATELET COUNT, AUTOMATED 121 10^3/uL (150-450); RED BLOOD COUNT 3.59 10^6/uL (4.00-5.40); RED CELL DISTRIBUTION WIDTH 13.3 % (11.5-14.5); WHITE BLOOD COUNT 7.5 10^3/uL (4.0-10.0)
[2017-10-27 06:59] LABS: ANION GAP 9 MEQ/L (8-16); BLOOD UREA NITROGEN 26 MG/DL (7-18); CARBON DIOXIDE LEVEL 22 MEQ/L (21-32); CHLORIDE LEVEL 107 MEQ/L (98-107); CREATININE FOR GFR 2.34 MG/DL (0.55-1.02); GLOMERULAR FILTRATION RATE 21.2 (>32); GLUCOSE, FASTING 111 MG/DL (83-110); MAGNESIUM LEVEL 2.1 MG/DL (1.8-2.4); POTASSIUM SERUM 4.1 MEQ/L (3.5-5.1); SODIUM LEVEL 138 MEQ/L (136-145)
[2017-10-27] MEDS: PANTOPRAZOLE 40MG TAB (PROTONIX) PO (08:30)
[2017-10-27] MEDS: ASPIRIN 81 MG ENTERIC TAB PO (08:31)
[2017-10-27] MEDS: predniSONE 20 MG TAB PO (08:31)
[2017-10-27] MEDS: VITAMIN D 1,000 INTERNATIONAL UNITS TABLET PO (08:31)
[2017-10-27] MEDS: ENOXAPARIN 30 MG/0.3 ML SYR (J1650) SC (08:37)
[2017-10-28] MEDS: IPRATROPIUM 0.5MG/ALBUTEROL 2.5MG INH SOL UD 3ML (DUONEB)(J7620) NEB ×5 (04:12→19:36)
[2017-10-28] MEDS: LEVOTHYROXINE 112MCG TABLET (0.112MG) PO (05:30)
[2017-10-28] MEDS: BUDESONIDE 0.5 MG/2 ML INHALATION SUSPENSION INH ×2 (07:08→19:36)
[2017-10-28] MEDS: predniSONE 20 MG TAB PO (07:40)
[2017-10-28] MEDS: ASPIRIN 81 MG ENTERIC TAB PO (07:41)
[2017-10-28] MEDS: VITAMIN D 1,000 INTERNATIONAL UNITS TABLET PO (07:41)
[2017-10-28] MEDS: PANTOPRAZOLE 40MG TAB (PROTONIX) PO (07:41)
[2017-10-28] MEDS: POTASSIUM CHLORIDE 10 MEQ SR TABLET PO ×2 (07:41→20:53)
[2017-10-28] MEDS: ENOXAPARIN 30 MG/0.3 ML SYR (J1650) SC (07:41)
[2017-10-28] MEDS: FAMOTIDINE 20 MG TAB PO ×2 (07:41→20:53)
[2017-10-28] MEDS: CARVedilol 3.125 MG TAB PO ×2 (07:42→20:53)
[2017-10-28] MEDS: LevoFLOXacin 500 MG TABLET PO (11:13)
[2017-10-28] MEDS: CLOPIDOGREL 75 MG TAB PO (20:53)
[2017-10-28] MEDS: ROSUVASTATIN 10 MG TAB (CRESTOR) PO (20:53)
[2017-10-29] MEDS: IPRATROPIUM 0.5MG/ALBUTEROL 2.5MG INH SOL UD 3ML (DUONEB)(J7620) NEB ×3 (00:05→07:50)
[2017-10-29] MEDS: LEVOTHYROXINE 112MCG TABLET (0.112MG) PO (05:35)
[2017-10-29 06:18] LABS: MEAN CORPUSCULAR HEMOGLOBIN 32.9 pg (27.0-33.0); MEAN CORPUSCULAR HGB CONC 32.3 g/dl (32.0-36.5); PLATELET COUNT, AUTOMATED 126 10^3/uL (150-450); RED BLOOD COUNT 3.04 10^6/uL (4.00-5.40); RED CELL DISTRIBUTION WIDTH 13.2 % (11.5-14.5); WHITE BLOOD COUNT 10.3 10^3/uL (4.0-10.0)
[2017-10-29] MEDS: BUDESONIDE 0.5 MG/2 ML INHALATION SUSPENSION INH (07:50)
[2017-10-29] MEDS: CARVedilol 3.125 MG TAB PO ×2 (09:00→09:44)
[2017-10-29] MEDS: predniSONE 20 MG TAB PO (09:43)
[2017-10-29] MEDS: PANTOPRAZOLE 40MG TAB (PROTONIX) PO (09:43)
[2017-10-29] MEDS: VITAMIN D 1,000 INTERNATIONAL UNITS TABLET PO (09:43)
[2017-10-29] MEDS: FAMOTIDINE 20 MG TAB PO (09:43)
[2017-10-29] MEDS: ASPIRIN 81 MG ENTERIC TAB PO (09:43)
[2017-10-29] MEDS: ENOXAPARIN 30 MG/0.3 ML SYR (J1650) SC (09:44)
[2017-10-29] MEDS: POTASSIUM CHLORIDE 10 MEQ SR TABLET PO (09:44)
== END 2017-10-29 11:38 | disposition home health service (06) | DRG 190 ==
LOC: M ED 17:30 → M ED INP 20:52 → M MSPAV 22:10
DX: J44.1 Chronic obstructive pulmonary disease with (acute) exacerbation (principal); J18.9 Pneumonia, unspecified organism; I50.32 Chronic diastolic (congestive) heart failure; J96.11 Chronic respiratory failure with hypoxia; N18.4 Chronic kidney disease, stage 4 (severe); I13.0 Hypertensive heart and chronic kidney disease with heart failure and stage 1 through stage 4 chronic kidney disease, or unspecified chronic kidney disease; Z79.52 Long term (current) use of systemic steroids; Z99.81 Dependence on supplemental oxygen; I73.9 Peripheral vascular disease, unspecified; E03.9 Hypothyroidism, unspecified; I25.10 Atherosclerotic heart disease of native coronary artery without angina pectoris; I27.20 Pulmonary hypertension, unspecified; K21.9 Gastro-esophageal reflux disease without esophagitis; F32.9 Major depressive disorder, single episode, unspecified; F17.210 Nicotine dependence, cigarettes, uncomplicated; Z79.899 Other long term (current) drug therapy; Z79.82 Long term (current) use of aspirin; Z86.718 Personal history of other venous thrombosis and embolism

== ENCOUNTER 2017-11-06 21:21 | Inpatient (IN) | payer MEDICARE ==
[2017-11-06] MEDS: methylPREDNISolone INJ 125 MG/2 ML VIAL (J2930) IV (22:15)
[2017-11-06 22:49] LABS: VENOUS HCO3 19.7 MEQ/L (23.0-27.0); VENOUS O2 SATURATION 71.8 % (60.0-80.0); VENOUS PARTIAL PRESSURE CO2 49.2 mmHg (38.0-50.0); VENOUS PARTIAL PRESSURE O2 39.2 mmHg (30.0-50.0); VENOUS STANDARD HCO3 17.6 MEQ/L; VENOUS TOTAL CO2 21.2 MEQ/L (24.0-28.0)
[2017-11-06 22:50] LABS: BASO # 0.1 10^3/uL (0.0-0.2); BASO % 0.2 % (0.0-1.0); HEMATOCRIT 32.3 % (36.0-47.0); HEMOGLOBIN 10.5 g/dl (12.0-16.0); IMMATURE GRANULOCYTE # 0.4 10^3/uL (0-0); IMMATURE GRANULOCYTE % 1.9 % (0-0); LYMPH # 0.6 10^3/uL (1.5-4.5); LYMPH % 2.8 % (24.0-44.0); MEAN CORPUSCULAR HEMOGLOBIN 32.3 pg (27.0-33.0); MEAN CORPUSCULAR HGB CONC 32.5 g/dl (32.0-36.5); MEAN CORPUSCULAR VOLUME 99.4 fl (80.0-96.0); MONO % 4.3 % (0.0-5.0); NEUTROPHILS % 90.8 % (36.0-66.0); PLATELET COUNT, AUTOMATED 163 10^3/uL (150-450); RED BLOOD COUNT 3.25 10^6/uL (4.00-5.40); RED CELL DISTRIBUTION WIDTH 13.1 % (11.5-14.5)
[2017-11-06] MEDS: IPRATROPIUM 0.5MG/ALBUTEROL 2.5MG INH SOL UD 3ML (DUONEB)(J7620) NEB ×3 (23:36→23:37)
[2017-11-06 23:38] LABS: LACTIC ACID SEPSIS PROTOCOL 1.4 MMOL/L (0.4-2.0)
[2017-11-06 23:38] LABS: ANION GAP 8 MEQ/L (8-16); BLOOD UREA NITROGEN 35 MG/DL (7-18); CALCIUM LEVEL 7.8 MG/DL (8.8-10.2); CARBON DIOXIDE LEVEL 21 MEQ/L (21-32); CHLORIDE LEVEL 111 MEQ/L (98-107); CPK CREATINE PHOSPHOKINASE 903 U/L (26-192); CREATININE FOR GFR 3.88 MG/DL (0.55-1.02); GLOMERULAR FILTRATION RATE 11.8 (>32); GLUCOSE, FASTING 111 MG/DL (83-110); POTASSIUM SERUM 4.6 MEQ/L (3.5-5.1); SODIUM LEVEL 140 MEQ/L (136-145); TROPONIN I < 0.02 NG/ML (< 0.10)
[2017-11-06 23:40] LABS: CK-MB VALUE MASS 4.3 NG/ML (0.0-3.6); MB/CK RELATIVE INDEX 0.47 (< OR =4); NT-PRO BNP 2633 PG/ML (<450)
[2017-11-06] MEDS: NS 1,000 ML IV (23:45)
[2017-11-06] MEDS: PIPERACILLIN/TAZOBACTAM SOD 3.375 GM in APPROPRIATE DILUENT 1 EA IV (23:45)
[2017-11-07] MEDS ORDERED: ALBUTEROL SULFATE 2.5 MG/0.5 ML INH NEB SOLN INH (02:00)
[2017-11-07] MEDS ORDERED: ONDANSETRON 4MG/2ML VIAL (J2405) IV (02:00)
[2017-11-07] MEDS ORDERED: IPRATROPIUM 0.02% SOLN 0.5MG/2.5 ML NEB INH (02:00)
[2017-11-07] MEDS ORDERED: POLYVINYL ALCOHOL OPHTH SOLN 15 ML(LIQUITEARS) OU (02:00)
[2017-11-07] MEDS ORDERED: ALPRAZolam 0.25 MG TAB PO (02:00)
[2017-11-07] MEDS: IPRATROPIUM 0.5MG/ALBUTEROL 2.5MG INH SOL UD 3ML (DUONEB)(J7620) NEB ×6 (02:33→23:47)
[2017-11-07] MEDS: methylPREDNISolone INJ 40 MG/1 ML VIAL (J2920) IV ×2 (05:00→11:23)
[2017-11-07] MEDS: LEVOTHYROXINE 112MCG TABLET (0.112MG) PO (06:00)
[2017-11-07] MEDS: HEPARIN SOD (PORCINE) 5000 UNITS/ML VIAL SC ×3 (06:00→22:10)
[2017-11-07] MEDS: BUDESONIDE 0.5 MG/2 ML INHALATION SUSPENSION INH ×2 (07:52→20:09)
[2017-11-07] MEDS: FAMOTIDINE 20 MG TAB PO ×2 (09:09→20:42)
[2017-11-07] MEDS: VITAMIN D 1,000 INTERNATIONAL UNITS TABLET PO (09:09)
[2017-11-07] MEDS: CARVedilol 3.125 MG TAB PO ×2 (09:09→20:43)
[2017-11-07] MEDS: ASPIRIN 81 MG ENTERIC TAB PO (09:10)
[2017-11-07] MEDS: POTASSIUM CHLORIDE 10 MEQ SR TABLET PO ×2 (09:10→20:42)
[2017-11-07] MEDS: NS 1,000 ML IV (16:46)
[2017-11-07 17:43] LABS: SODIUM,RANDOM URINE 16 MEQ/L
[2017-11-07 18:07] LABS: ANION GAP 9 MEQ/L (8-16); BLOOD UREA NITROGEN 37 MG/DL (7-18); CALCIUM LEVEL 7.4 MG/DL (8.8-10.2); CARBON DIOXIDE LEVEL 19 MEQ/L (21-32); CHLORIDE LEVEL 114 MEQ/L (98-107); CREATININE FOR GFR 3.54 MG/DL (0.55-1.02); GLOMERULAR FILTRATION RATE 13.1 (>32); GLUCOSE, FASTING 192 MG/DL (83-110); POTASSIUM SERUM 4.1 MEQ/L (3.5-5.1); SODIUM LEVEL 142 MEQ/L (136-145)
[2017-11-07] MEDS: CLOPIDOGREL 75 MG TAB PO (20:42)
[2017-11-07] MEDS: ROSUVASTATIN 10 MG TAB (CRESTOR) PO (20:43)
[2017-11-07] MEDS: ACETAMINOPHEN TAB 650MG DOSE (2X325MG) PO (20:56)
[2017-11-07] MEDS: methylPREDNISolone INJ 125 MG/2 ML VIAL (J2930) IV (22:11)
[2017-11-08] MEDS: NS 1,000 ML IV ×3 (01:23→17:00)
[2017-11-08] MEDS: IPRATROPIUM 0.5MG/ALBUTEROL 2.5MG INH SOL UD 3ML (DUONEB)(J7620) NEB ×5 (04:00→20:00)
[2017-11-08] MEDS: LEVOTHYROXINE 112MCG TABLET (0.112MG) PO (05:51)
[2017-11-08] MEDS: HEPARIN SOD (PORCINE) 5000 UNITS/ML VIAL SC ×3 (05:51→21:27)
[2017-11-08 06:02] LABS: HEMATOCRIT 26.5 % (36.0-47.0); HEMOGLOBIN 8.9 g/dl (12.0-16.0); MEAN CORPUSCULAR HEMOGLOBIN 33.1 pg (27.0-33.0); MEAN CORPUSCULAR HGB CONC 33.6 g/dl (32.0-36.5); MEAN CORPUSCULAR VOLUME 98.5 fl (80.0-96.0); RED BLOOD COUNT 2.69 10^6/uL (4.00-5.40); WHITE BLOOD COUNT 25.5 10^3/uL (4.0-10.0)
[2017-11-08 06:03] LABS: PLATELET COUNT, AUTOMATED 138 10^3/uL (150-450); RED CELL DISTRIBUTION WIDTH 13.2 % (11.5-14.5)
[2017-11-08 06:24] LABS: ANION GAP 9 MEQ/L (8-16); BLOOD UREA NITROGEN 34 MG/DL (7-18); CALCIUM LEVEL 7.4 MG/DL (8.8-10.2); CARBON DIOXIDE LEVEL 17 MEQ/L (21-32); CHLORIDE LEVEL 117 MEQ/L (98-107); GLOMERULAR FILTRATION RATE 14.2 (>32); GLUCOSE, FASTING 120 MG/DL (83-110); POTASSIUM SERUM 4.1 MEQ/L (3.5-5.1); SODIUM LEVEL 143 MEQ/L (136-145)
[2017-11-08] MEDS: BUDESONIDE 0.5 MG/2 ML INHALATION SUSPENSION INH ×2 (08:54→20:00)
[2017-11-08] MEDS: VITAMIN D 1,000 INTERNATIONAL UNITS TABLET PO (09:04)
[2017-11-08] MEDS: CARVedilol 3.125 MG TAB PO ×2 (09:04→21:26)
[2017-11-08] MEDS: ASPIRIN 81 MG ENTERIC TAB PO (09:04)
[2017-11-08] MEDS: FAMOTIDINE 20 MG TAB PO ×2 (09:04→21:26)
[2017-11-08] MEDS: POTASSIUM CHLORIDE 10 MEQ SR TABLET PO ×2 (09:04→21:25)
[2017-11-08] MEDS: methylPREDNISolone INJ 125 MG/2 ML VIAL (J2930) IV (11:00)
[2017-11-08] MEDS: CLOPIDOGREL 75 MG TAB PO (21:25)
[2017-11-08] MEDS: ACETAMINOPHEN TAB 650MG DOSE (2X325MG) PO (21:25)
[2017-11-08] MEDS: ROSUVASTATIN 10 MG TAB (CRESTOR) PO (21:26)
[2017-11-09] MEDS: IPRATROPIUM 0.5MG/ALBUTEROL 2.5MG INH SOL UD 3ML (DUONEB)(J7620) NEB ×4 (00:19→20:00)
[2017-11-09] MEDS: HEPARIN SOD (PORCINE) 5000 UNITS/ML VIAL SC ×4 (06:00→22:00)
[2017-11-09] MEDS: LEVOTHYROXINE 112MCG TABLET (0.112MG) PO (06:28)
[2017-11-09] MEDS: BUDESONIDE 0.5 MG/2 ML INHALATION SUSPENSION INH ×2 (06:37→20:00)
[2017-11-09 06:41] LABS: HEMOGLOBIN 8.5 g/dl (12.0-16.0); MEAN CORPUSCULAR HEMOGLOBIN 32.3 pg (27.0-33.0); MEAN CORPUSCULAR HGB CONC 32.7 g/dl (32.0-36.5); MEAN CORPUSCULAR VOLUME 98.9 fl (80.0-96.0); PLATELET COUNT, AUTOMATED 139 10^3/uL (150-450); RED BLOOD COUNT 2.63 10^6/uL (4.00-5.40); RED CELL DISTRIBUTION WIDTH 13.2 % (11.5-14.5); WHITE BLOOD COUNT 21.7 10^3/uL (4.0-10.0)
[2017-11-09 06:59] LABS: ANION GAP 8 MEQ/L (8-16); BLOOD UREA NITROGEN 36 MG/DL (7-18); CALCIUM LEVEL 7.5 MG/DL (8.8-10.2); CARBON DIOXIDE LEVEL 18 MEQ/L (21-32); CHLORIDE LEVEL 119 MEQ/L (98-107); CREATININE FOR GFR 2.89 MG/DL (0.55-1.02); GLOMERULAR FILTRATION RATE 16.6 (>32); GLUCOSE, FASTING 108 MG/DL (83-110); SODIUM LEVEL 145 MEQ/L (136-145)
[2017-11-09 07:47] LABS: FERRITIN 1369 NG/ML (8-252); IRON (FE) 97 UG/DL (50-170); PERCENT SATURATION 39.8 % (13.2-45.0); TOTAL IRON BINDING CAPACITY 244 UG/DL (250-450)
[2017-11-09] MEDS: FORMOTEROL FUMARATE 20 MCG/2 ML INHALATION SOLUTION (PERFOROMIST) INH ×2 (08:00→20:00)
[2017-11-09] MEDS: ALBUTEROL SULFATE 2.5 MG/0.5 ML INH NEB SOLN NEB ×2 (08:08→15:44)
[2017-11-09] MEDS: SODIUM BICARBONATE 325 MG TAB PO ×2 (09:00→21:00)
[2017-11-09] MEDS ORDERED: predniSONE 10 MG TAB PO (09:00)
[2017-11-09] MEDS: predniSONE 20 MG TAB PO ×2 (09:00→21:00)
[2017-11-09] MEDS: FOLIC ACID 1 MG TAB PO (09:00)
[2017-11-09] MEDS: FAMOTIDINE 20 MG TAB PO ×2 (09:31→21:00)
[2017-11-09] MEDS: ASPIRIN 81 MG ENTERIC TAB PO (09:31)
[2017-11-09] MEDS: VITAMIN D 1,000 INTERNATIONAL UNITS TABLET PO (09:31)
[2017-11-09] MEDS: POTASSIUM CHLORIDE 10 MEQ SR TABLET PO ×2 (09:31→21:00)
[2017-11-09] MEDS: CARVedilol 3.125 MG TAB PO ×2 (09:32→21:00)
[2017-11-09 09:38] LABS: FOLATE 3.6 NG/ML (>5.4); VITAMIN B12 LEVEL 1009 PG/ML (247-911)
[2017-11-09 09:50] LABS: CK-MB VALUE MASS 6.2 NG/ML (0.0-3.6); CPK CREATINE PHOSPHOKINASE 1079 U/L (26-192); MB/CK RELATIVE INDEX 0.57 (< OR =4)
[2017-11-09 09:51] LABS: TROPONIN I 0.04 NG/ML (< 0.10)
[2017-11-09] MEDS ORDERED: methylPREDNISolone INJ 40 MG/1 ML VIAL (J2920) IV (10:00)
[2017-11-09 10:26] LABS: ABG BASE EXCESS -10.1 (-2.0-2.0); ABG HCO3 15.7 MEQ/L (22.0-26.0); ABG O2 SATURATION 95.1 % (95.0-99.0); ABG PARTIAL PRESSURE O2 74.4 mmHg (75.0-100.0); ABG STANDARD HCO3 16.3 MEQ/L (22.0-26.0); ABG TOTAL CO2 16.7 MEQ/L (23.0-31.0); ABG pH (ARTERIAL) 7.282 UNITS (7.350-7.450)
[2017-11-09 12:34] LABS: PROTHROMBIN TIME 14.4 SECONDS (12.4-14.5)
[2017-11-09 12:35] LABS: PARTIAL THROMBOPLASTIN TIME 80.3 SECONDS (26.8-37.9)
[2017-11-09 14:30] LABS: PHOSPHORUS LEVEL 3.1 MG/DL (2.5-4.9)
[2017-11-09] MEDS: ALPRAZolam 0.25 MG TAB PO (17:00)
[2017-11-09] MEDS ORDERED: SODIUM CHLORIDE 0.9% INJ 10 ML SYR IV (17:15)
[2017-11-09] MEDS: SODIUM CHLORIDE 0.9% INJ 10 ML SYR IV (18:00)
[2017-11-09] MEDS: CLOPIDOGREL 75 MG TAB PO (21:00)
[2017-11-09] MEDS: ROSUVASTATIN 10 MG TAB (CRESTOR) PO (21:00)
[2017-11-09] MEDS: MORPHINE 2 MG/ML 1ML SYRINGE IV (21:25)
[2017-11-10] MEDS: MORPHINE 2 MG/ML 1ML SYRINGE IV ×5 (00:04→14:15)
[2017-11-10] MEDS: IPRATROPIUM 0.5MG/ALBUTEROL 2.5MG INH SOL UD 3ML (DUONEB)(J7620) NEB ×3 (02:00→13:18)
[2017-11-10] MEDS: LORazepam 2 MG/ML VIAL (J2060) IV ×4 (05:51→14:15)
[2017-11-10] MEDS: SODIUM CHLORIDE 0.9% INJ 10 ML SYR IV (06:00)
[2017-11-10] MEDS: LEVOTHYROXINE 112MCG TABLET (0.112MG) PO (06:00)
[2017-11-10] MEDS: HEPARIN SOD (PORCINE) 5000 UNITS/ML VIAL SC ×2 (06:00→13:29)
[2017-11-10] MEDS: BUDESONIDE 0.5 MG/2 ML INHALATION SUSPENSION INH (07:14)
[2017-11-10] MEDS: FORMOTEROL FUMARATE 20 MCG/2 ML INHALATION SOLUTION (PERFOROMIST) INH (07:14)
[2017-11-10] MEDS: predniSONE 20 MG TAB PO (09:00)
[2017-11-10] MEDS: POTASSIUM CHLORIDE 10 MEQ SR TABLET PO (09:00)
[2017-11-10] MEDS: VITAMIN D 1,000 INTERNATIONAL UNITS TABLET PO (09:00)
[2017-11-10] MEDS: CARVedilol 3.125 MG TAB PO (09:00)
[2017-11-10] MEDS: SODIUM BICARBONATE 325 MG TAB PO (09:00)
[2017-11-10] MEDS: FAMOTIDINE 20 MG TAB PO (09:00)
[2017-11-10] MEDS: FOLIC ACID 1 MG TAB PO (09:00)
[2017-11-10] MEDS: ASPIRIN 81 MG ENTERIC TAB PO (09:00)
[2017-11-10] MEDS: SCOPOLAMINE 1MG TRANSDERMAL PATCH TOP (14:00)
== END 2017-11-10 18:00 | disposition expired | DRG 683 ==
LOC: M ED INP 11-07 01:50 → M MS4PR 11-07 09:28 → M ED 21:21
PROC: 02HV33Z Insertion of Infusion Device into Superior Vena Cava, Percutaneous Approach (ICD-10-PCS; principal; 2017-11-09)
DX: N17.9 Acute kidney failure, unspecified (principal); J44.1 Chronic obstructive pulmonary disease with (acute) exacerbation; E87.2 Acidosis; I50.32 Chronic diastolic (congestive) heart failure; J96.11 Chronic respiratory failure with hypoxia; J96.12 Chronic respiratory failure with hypercapnia; G72.0 Drug-induced myopathy; I13.0 Hypertensive heart and chronic kidney disease with heart failure and stage 1 through stage 4 chronic kidney disease, or unspecified chronic kidney disease; Z51.5 Encounter for palliative care; N18.4 Chronic kidney disease, stage 4 (severe); I25.10 Atherosclerotic heart disease of native coronary artery without angina pectoris; I73.9 Peripheral vascular disease, unspecified; E03.9 Hypothyroidism, unspecified; E78.5 Hyperlipidemia, unspecified; K21.9 Gastro-esophageal reflux disease without esophagitis; D63.1 Anemia in chronic kidney disease; Z87.891 Personal history of nicotine dependence; Z79.82 Long term (current) use of aspirin; Z79.02 Long term (current) use of antithrombotics/antiplatelets; Z79.52 Long term (current) use of systemic steroids; Z99.81 Dependence on supplemental oxygen; Z95.9 Presence of cardiac and vascular implant and graft, unspecified; Z86.73 Personal history of transient ischemic attack (TIA), and cerebral infarction without residual deficits; Z90.710 Acquired absence of both cervix and uterus; Z98.41 Cataract extraction status, right eye; Z98.42 Cataract extraction status, left eye